=== PATIENT | male | born 1975 ===

== ENCOUNTER 2017-08-24 11:01 | Emergency (ER) | payer OTHER ==
[2017-08-24 11:08] VITALS: BP 151/86; PULSE 61; RESP 20; TEMP 99.2; O2SAT 99
[2017-08-24 11:46] LABS: SQUAMOUS EPITHIAL 1 /hpf (0-5); URINE BILIRUBIN NEGATIVE (NEGATIVE); URINE BLOOD 3+ (NEGATIVE); URINE CLARITY Hazy (Clear); URINE COLOR Yellow (YELLOW); URINE GLUCOSE (UA) NORMAL (Normal); URINE LEUKOCYTE ESTERASE NEG Leu/uL (Negative); URINE PROTEIN NEGATIVE (NEGATIVE); URINE UROBILINOGEN NORMAL mg/dL (0.2-1.0)
[2017-08-24 11:50] LABS: BASO # 0.1 K/uL (0.0-0.2); BASO % 0.5 % (0.0-2.0); HEMOGLOBIN 13.9 g/dL (12.0-18.0); LYMPH # 0.6 K/uL (1.0-4.3); LYMPH % 5.3 % (20.0-40.0); MEAN CELL VOLUME 87.5 fL (80.0-94.0); MEAN CORPUSCULAR HEMOGLOBIN 29.8 pg (27.0-31.0); MEAN CORPUSCULAR HGB CONC 34.1 g/dL (33.0-37.0); MONO # 0.5 K/uL (0.0-0.8); MONO % 4.4 % (0.0-10.0); NEUT # 10.3 K/uL (1.8-7.0); NEUT % 89.8 % (50.0-75.0); PLATELET COUNT 220 K/uL (130-400); RBC 4.65 Mil/uL (4.40-5.90); RED CELL DISTRIBUTION WIDTH 13.3 % (11.5-14.5); WHITE BLOOD COUNT 11.4 K/uL (4.8-10.8)
--- NOTE | 2017-08-24 12:00 | C.PDOC ---
History Of Present Illness Patient is a 42 y/o male who presents to the ED with complaints of left flank pain that radiates to the left abdomen and hematuria for the last 1 day. Patient was sent by PMD today. Denies any nausea or vomiting. No other physical complaints at this time. Time Seen by Provider: 08/24/17 11:11 Chief Complaint (Nursing): Male Genitourinary History Per: Patient History/Exam Limitations: no limitations Onset/Duration Of Symptoms: Days (1) Current Symptoms Are (Timing): Still Present Associated Symptoms: Other (left flank pain that radiates to left abdomen) Recent travel outside of the [place]: No Past Medical History Reviewed: Historical Data, Nursing Documentation, Vital Signs Vital Signs: Last Vital Signs Temp 99.2 F 08/24/17 11:04 Pulse 61 08/24/17 11:04 Resp 20 08/24/17 11:04 BP 151/86 H 08/24/17 11:04 Pulse Ox 99 08/24/17 13:16 - Medical History PMH: No Chronic Diseases Surgical History: No Surg Hx Family History: States: No Known Family Hx - Social History Hx Tobacco Use: No Hx Alcohol Use: Yes (hx of alcohol use) Hx Substance Use: No - Immunization History Hx Tetanus Toxoid Vaccination: Yes Hx Influenza Vaccination: Yes Hx Pneumococcal Vaccination: Yes Review Of Systems Gastrointestinal: Positive for: Abdominal Pain (abdominal pain and left flank pain) Physical Exam - Physical Exam Appears: Well, Non-toxic, No Acute Distress Skin: Normal Color, Warm, Dry Head: Atraumatic, Normacephalic Oral Mucosa: Moist Chest: Symmetrical Cardiovascular: Rhythm Regular, No Murmur Respiratory: Normal Breath Sounds, No Rales, No Rhonchi, No Wheezing Gastrointestinal/Abdominal: Soft, Tenderness (LLQ tenderness), No Guarding, No Rebound Back: CVA Tenderness (left) Neurological/Psych: Oriented x3, Normal Speech, Normal Cognition ED Course And Treatment - Laboratory Results Result Diagrams: 08/24/17 11:44 08/24/17 11:44 O2 Sat by Pulse Oximetry: 99 - CT Scan/US CT abdomen/pelvis Other Rad Studies (CT/US): Interpreted By Me, Read By Radiologist CT/US Interpretation: PROCEDURE: CT Abdomen and Pelvis without intravenous contrast. HISTORY: abd pain. COMPARISON: None. TECHNIQUE: Axial and reformatted coronal and sagittal CT images of the abdomen and pelvis were obtained without IV or oral contrast administration.. Contrast dose: 0. Radiation dose: Total exam DLP = 458.76 mGy-cm. This CT exam was performed using one or more of the following dose reduction techniques: Automated exposure control, adjustment of the mA and/or kV according to patient size, and/ or use of iterative reconstruction technique. FINDINGS: LOWER THORAX: No evidence of acute pathology. LIVER: The liver is mildly enlarged. No evidence of acute pathology. GALLBLADDER AND BILE DUCTS: Unremarkable. PANCREAS: Unremarkable. No gross lesion or ductal dilatation. SPLEEN: Unremarkable. ADRENALS: Unremarkable. No mass. KIDNEYS AND URETERS: Mild left hydronephrosis and hydroureter up to 2- 3 millimeter calculus at the distal left ureter adjacent to the UV junction image 73 series 2. No evidence of hydronephrosis or obstructing stone on the right kidney. VASCULATURE: Unremarkable. No aortic aneurysm. BOWEL: Unremarkable. No obstruction. No gross mural thickening. APPENDIX: Unremarkable. Normal appendix. PERITONEUM: Unremarkable. No free fluid. No free air. LYMPH NODES: Unremarkable. No enlarged lymph nodes. BLADDER: Unremarkable. REPRODUCTIVE: Unremarkable. BONES: No acute fracture. OTHER FINDINGS: None. IMPRESSION: Mild left hydronephrosis and hydroureter up to 2-3 millimeter calculus at the distal left ureter adjacent to the UV junction. No evidence of other acute pathology in the abdomen and pelvis. Progress Note: Assessment: renal colic. CT abdomen/pelvis, CBC, and blood work ordered. Toradol and zofran administered. Disposition Counseled Patient/Family Regarding: Studies Performed, Diagnosis, Need For Followup, Rx Given - Disposition Referrals: Komal Foote MD [Staff Provider] - Disposition: HOME/ ROUTINE Disposition Time: 13:21 Condition: STABLE Additional Instructions: follow up with urology in 2 days call to make an appointment take medications as needed for pain return to ER if symptoms worsens or progress Prescriptions: Naproxen [Naprosyn] 500 mg PO BID PRN #16 tab PRN Reason: Pain, Moderate (4-7) Ondansetron ODT [Zofran ODT] 4 mg PO TID PRN #12 odt PRN Reason: Nausea/Vomiting Tamsulosin HCl [Flomax] 0.4 mg PO DAILY #5 cap.er.24h traMADol [Ultram] 50 mg PO TID PRN #10 tab PRN Reason: Pain, Moderate (4-7) Instructions: Renal Colic (DC) Forms: Gen Discharge Inst [facility], [facility] ([facility]) Print Language: CAMBODIAN - Clinical Impression Clinical Impression: Renal colic on left side - Scribe Statement The provider has reviewed the documentation as recorded by the Scribe Alexus Parra All medical record entries made by the Scribe were at my direction and personally dictated by me. I have reviewed the chart and agree that the record accurately reflects my personal performance of the history, physical exam, medical decision making, and the department course for this patient. I have also personally directed, reviewed, and agree with the discharge instructions and disposition.
[2017-08-24 12:01] LABS: ALB/GLOB RATIO 1.2 (1.0-2.1); ALBUMIN 4.3 g/dL (3.5-5.0); ALT/SGPT 31 U/L (21-72); AST/SGOT 35 U/L (17-59); BLOOD UREA NITROGEN 14 mg/dL (9-20); CALCIUM 8.9 mg/dl (8.6-10.4); GFR AFRICAN-AMERICAN > 60; GFR NON-AFRICAN AMERICAN > 60; LIPASE 77 U/L (23-300)
[2017-08-24 12:21] LABS: BANDS 3 % (0-2); LYMPHOCYTE 4 % (20-40); MONOCYTE 3 % (0-10); NEUTROPHIL 90 % (50-75); PLATELET ESTIMATE NORMAL (NORMAL); TOTAL CELLS COUNTED 100
--- NOTE | 2017-08-24 12:48 | CT ---
PROCEDURE: CT Abdomen and Pelvis without intravenous contrast HISTORY: abd pain COMPARISON: None. TECHNIQUE: Axial and reformatted coronal and sagittal CT images of the abdomen and pelvis were obtained without IV or oral contrast administration.. Contrast dose: 0 Radiation dose: Total exam DLP = 458.76 mGy-cm. This CT exam was performed using one or more of the following dose reduction techniques: Automated exposure control, adjustment of the mA and/or kV according to patient size, and/or use of iterative reconstruction technique. FINDINGS: LOWER THORAX: No evidence of acute pathology LIVER: The liver is mildly enlarged. No evidence of acute pathology GALLBLADDER AND BILE DUCTS: Unremarkable. PANCREAS: Unremarkable. No gross lesion or ductal dilatation. SPLEEN: Unremarkable. ADRENALS: Unremarkable. No mass. KIDNEYS AND URETERS: Mild left hydronephrosis and hydroureter up to 2- 3 millimeter calculus at the distal left ureter adjacent to the UV junction image 73 series 2. No evidence of hydronephrosis or obstructing stone on the right kidney. VASCULATURE: Unremarkable. No aortic aneurysm. BOWEL: Unremarkable. No obstruction. No gross mural thickening. APPENDIX: Unremarkable. Normal appendix. PERITONEUM: Unremarkable. No free fluid. No free air. LYMPH NODES: Unremarkable. No enlarged lymph nodes. BLADDER: Unremarkable. REPRODUCTIVE: Unremarkable. BONES: No acute fracture. OTHER FINDINGS: None. IMPRESSION: Mild left hydronephrosis and hydroureter up to 2-3 millimeter calculus at the distal left ureter adjacent to the UV junction. No evidence of other acute pathology in the abdomen and pelvis.
== END 2017-08-24 13:35 | disposition home or self-care (01) ==
LOC: C.ER 11:01
DX: N13.2 Hydronephrosis with renal and ureteral calculous obstruction (principal)
CPT/HCPCS: 74176; 80053; 81001; 83690; 85025; 96374; 99284; J1885